=== PATIENT | female | born 1965 | race Caucasian/White ===

== ENCOUNTER 2016-06-08 08:18 | Emergency (ER) | payer SELFPAY ==
--- NOTE | 2016-06-08 08:52 | ERRECORD ---
[facility] EMERGENCY RECORD HPI EYE COMPLAINT (08:41 ABUS) CHIEF COMPLAINT: Patient presents for evaluation of redness, to the left eye. HISTORIAN: History provided by patient, 50 yr old F with left eye redness and mild swelling for 1 week and not improving with warm compresses and allergy medication. Denies any changes in vision, eye ball pain, N/V or NEIL. MECHANISM OF INJURY: Unknown. LOCATION: Symptoms are localized, most severe in the left eye. SEVERITY: Currently symptoms are mild. TIME COURSE: Gradual onset of symptoms, 7, days priror to arrival, Symptoms are worsening, are constant. ASSOCIATED WITH: No associated symptoms. RELIEVED BY: Patient's condition relieved by nothing. ROS (08:43 ABUS) CONSTITUTIONAL: Negative constitutional review of systems, Historian denies chills, denies fever. EYES: Historian reports eye redness, reports tearing. CARDIOVASCULAR: Negative cardiovascular review of systems, Historian denies chest pain, denies palpitations. RESPIRATORY: Negative respiratory review of systems, Historian denies cough, denies shortness of breath. GI: Negative gastrointestinal review of systems, Historian denies abdominal pain, denies constipation, denies diarrhea, denies nausea, denies vomiting. GENITOURINARY FEMALE: Negative genitourinary review of systems, Historian denies dysuria, denies frequency. SKIN: Negative skin review of systems, Historian denies rash, denies skin changes. NEUROLOGIC: Negative neurologic review of systems, Historian denies headache. HEMO/LYMPHATIC: Normal hematologic/lymphatic system review, Historian denies abnormal blood clotting. PAST MEDICAL HISTORY (08:29 SFRE) MEDICAL HISTORY: Past medical history includes cardiac history, Past medical history includes history of hypertension, which has been treated, Notes: VERIFIED 12-11-14, Notes: VERIFIED 04-23-14, Flu vaccine not up to date, Pneumococcal vaccine not up to date, No past medical history of cardiac disease, Past medical history includes history of hypertension, which has been treated, HTCZ, Notes: REVIEWED ON 05/05/16. FEMALE SURGICAL HISTORY: VERIFIED 12-11-14, Surgical history of cholecystectomy, laparoscopic, Date of surgery 07/2014, VERIFIED 04-23-14, Surgical history of section, Notes: X 3, VERIFIED 01-06-13, LEFT ANKLE SURGERY MAY 2010 (PLATES AND SCREWS), Surgical history of section, Notes: X 3 PER PT. REVIEWED ON &a-1R&a+25V*p+0X*j8637X*c202B*c15G*c2P*p-0X&a-25V&a+1R Name: Melinda Short : 1965 F50 MedRec: [id number] AcctNum: [id number] Prepared: Izzy Jun 08, 2016 08:56 by Interface Page 1 of 3 pMD [facility] EMERGENCY RECORD 05/05/16. PSYCHIATRIC HISTORY: Notes: DENIES. REVIEWED ON 05/05/16. SOCIAL HISTORY: Patient denies alcohol use, Patient denies drug use, Patient has no smoking history, Social History includes VERIFIED 04-23-14, Social History includes VERIFIED 01-06-13, Patient has no smoking history, Patient drinks socially, Patient denies drug use. VERIFIED 05/02/15. KNOWN ALLERGIES No Known Allergies CURRENT MEDICATIONS (08:28 SFRE) hydrochlorothiazide: TABLET : Strength - 25 mg : ORAL Patient Dose: 1 tab(s) Oral once a day (in the morning).1 REFILL. citalopram: TABLET : Strength - 10 mg : ORAL Patient Dose: 10 mg Oral once a day (in the morning). VITAL SIGNS (08:26 SFRE) VITAL SIGNS: BP: 121/77, Pulse: 66, Resp: 18, Temp: 97.5 (Tympanic), Pain: 10 (not applicable), O2 sat: 99 on Room Air, Time: 06/08/2016 08:26. PHYSICAL EXAM (08:43 ABUS) CONSTITUTIONAL: Vital signs reviewed, Patient afebrile, Pulse normal, Blood pressure normal, Respiratory rate normal, Patient appears non toxic, Patient appears pain free, Patient alert and oriented to person, place and time. EYES: Eye exam included findings of, left eyelid red, left eyelid edematous, left eyelid with chalazion, right eyelid normal, Pupils equally round and reactive to light, Extraocular muscles intact, Conjunctiva normal, Sclera normal, Periorbital edema present, to the left eye. NECK: Neck exam normal, Neck exam included findings of normal range of motion, Trachea midline, no meningeal signs, no cervical adenopathy, no tenderness. RESPIRATORY CHEST: Respiratory and chest exam normal, Respiratory exam included findings of no respiratory distress, Chest exam included findings of chest movement symmetrical, Chest expansion equal. ABDOMEN FEMALE: Abdominal exam included findings of abdomen nontender, Bowel sounds normal, no distension, no mass, no pulsatile masses, no peritoneal signs, no rigidity, no guarding, no rebound, Rovsing's sign absent. BACK: Back exam normal, Back exam included findings of normal inspection, range of motion normal, no tenderness. &a-1R&a+25V*p+0X*[id number]*c202B*c15G*c2P*p-0X&a-25V&a+1R Name: Melinda Short : 1965 F50 MedRec: [id number] AcctNum: [id number] Prepared: Izzy Jun 08, 2016 08:56 by Interface Page 2 of 3 pMD [facility] EMERGENCY RECORD NEURO: Neuro exam normal, Neuro exam findings include patient oriented to person, place and time, Speech normal, Gait normal. SKIN: Skin exam normal, Skin exam included findings of skin warm, dry, and normal in color, no rash. DOCTOR NOTES (08:44 ABUS) TEXT: 50 yr old F with left eye redness and mild swelling for 1 week and not improving with warm compresses and allergy medication. Denies any changes in vision, eye ball pain, N/V or NEIL. EXAM: Left perirobital swelling, scleral injection, lower eye lid swelling. Normal EOMI without pain. DDX: Chalazion, Hordoleum, allergic conjunctivitis, peribortibal cellulitis PLAN: Return precautions and abx, warm comrpress DISPO: DC home Level of Complexity: low. PROBLEM LIST No recorded problems DIAGNOSIS (08:40 ABUS) FINAL: PRIMARY: HORDEOLUM EXTERNUM UNS EYE EYELID. PRESCRIPTION (08:39 ABUS) Keflex: CAPSULE : 500 mg : ORAL : Quantity: 1 Unit: cap(s) Route: ORAL Schedule: 4 times a day Dispense: 28 Unit: cap(s) May substitute. Refills: No Refills . NOTES: No Refills. erythromycin ophthalmic: OINTMENT (GRAM) : 5 mg/gram (0.5 %) : OPHTHALMIC : Quantity: * Unit: Route: OPHTHALMIC Schedule: Dispense: * May substitute. Refills: No Refills . NOTES: Instill 1 cm of ointment to left eye 3 times per day. Dispense 3.5 g tube. No refills No Refills. DISPOSITION PATIENT: Disposition Type: Discharge, Disposition: *Discharge Home, Condition: Good. (08:40 ABUS) Patient left the department. (08:49 BLACK) Lacey: AB=MD Pal, Wade SFRE=Serge RN, Maegan &a-1R&a+25V*p+0X*[id number]*c202B*c15G*c2P*p-0X&a-25V&a+1R Name: Melinda Short : 1965 F50 MedRec: [id number] AcctNum: [id number] Prepared: Izzy Jun 08, 2016 08:56 by Interface Page 3 of 3 pMD MTDD
--- NOTE | 2016-06-08 08:58 | PICIS ---
[facility] EMERGENCY RECORD TRIAGE (TueJun 08, 2016 08:27 SFRE) TRIAGE NOTES: PAIN TO LEFT EYE, REDNESS AND SWELLING. (TueJun 08, 2016 08:27 SFRE) PATIENT: NAME: Melinda Short, AGE: 50, GENDER: female, : Heide 1965, TIME OF GREET: TueJun 08, 2016 08:19, PREFERRED LANGUAGE: Armenian, ETHNICITY: Not or , FALL RISK: NO, ECODE BILLING MAP: [facility], SSN: [id number], Zip Code: [address], KG WEIGHT: 79.38, PHONE: , , , PERSON ID: [id number], PCP: MD Sanchez Grover. (TueJun 08, 2016 08:27 SFRE) COMPLAINT: LT EYE-BUMP. (TueJun 08, 2016 08:27 SFRE) ADMISSION: URGENCY: 5 Fast Track, ADMISSION SOURCE: Home, TRANSPORT: Walk-in, BED: ED -03. (TueJun 08, 2016 08:27 SFRE) IMMUNIZATIONS: Flu vaccine not up to date. (08:29 SFRE) TRIAGE SCREENING: Patient denies suicidal ideation, Patient denies presence of domestic violence. (08:29 SFRE) PROVIDERS: TRIAGE NURSE: Maegan Valentine RN. (TueJun 08, 2016 08:27 SFRE) VITAL SIGNS: BP 121/77, Pulse 66, Resp 18, Temp 97.5, (Tympanic), Pain 10, (not applicable), O2 Sat 99, on Room Air, Time 06/08/2016 08:26. (08:26 SFRE) PREVIOUS VISIT ALLERGIES: No Known Allergies. (TueJun 08, 2016 08:27 SFRE) No Known Allergies. (08:29 SFRE) KNOWN ALLERGIES No Known Allergies CURRENT MEDICATIONS (08:28 SFRE) hydrochlorothiazide: TABLET : Strength - 25 mg : ORAL Patient Dose: 1 tab(s) Oral once a day (in the morning).1 REFILL. citalopram: TABLET : Strength - 10 mg : ORAL Patient Dose: 10 mg Oral once a day (in the morning). VITAL SIGNS (08:26 SFRE) VITAL SIGNS: BP: 121/77, Pulse: 66, Resp: 18, Temp: 97.5 (Tympanic), Pain: 10 (not applicable), O2 sat: 99 on Room Air, Time: 06/08/2016 08:26. NURSING ASSESSMENT: EYE (08:30 SFRE) CONSTITUTIONAL: Patient arrives ambulatory, Gait steady, History obtained from patient, Patient appears, in distress due to pain, Patient cooperative, Patient alert, Oriented to person, place and time, Skin warm, Skin dry, Skin normal in color, Mucous membranes pink, Mucous membranes moist, Patient is well-groomed, Patient complains of BUMP ON LEFT EYE. PAIN: miserable pain, Right eye, Onset of pain &a-1R&a+25V*p+0X*f5126V*c202B*c15G*c2P*p-0X&a-25V&a+1R Name: Melinda Short : 1965 F50 MedRec: [id number] AcctNum: [id number] Prepared: Izzy Jun 08, 2016 08:56 by Interface Page 1 of 5 pMD [facility] EMERGENCY RECORD 06/02/2016, constant, on a scale 0-10 patient rates pain as 10, PATIENT STATES EYE DOESN'T HURT BUT THAT SHE IS MISERABLE, Pain exacerbated by nothing. EYES: Eye lid, with edema on the right, Conjunctiva, injected on the right, edematous on the right, Sclera, injected on the right, Iris normal, Pupils equally round and reactive to light, Left pupil 3 mm in size, Right pupil 3 mm in size, Associated with drainage, yellow in color, to the right eye, Associated with tearing, to the right eye. SAFETY: Side rails up, Cart/Stretcher in lowest position, Call light within reach, Hospital ID band on. NURSING PROCEDURE: DISCHARGE NOTE (08:46 SFRE) DISCHARGE: Patient discharged to home, ambulating without assistance, driving self, unaccompanied, Summary of Care printed/ provided, Patient requested and was provided an electronic copy of Discharge Instructions, Discharge instructions given to patient, Simple or moderate discharge teaching performed, by ERON HAWKINS, F/U WITH PCP. RX DIRECTED. RETURN TO ED NEEDED FOR NEW/CONCERNING OR WORSENING SYMPTOMS., Prescriptions given and instructions on side effects given, Name of prescription(s) given: KEFLEX, ERYTHROMYCIN OPHTHALMIC, Above person(s) verbalized understanding of discharge instructions and follow-up care. HPI EYE COMPLAINT (08:41 ABUS) CHIEF COMPLAINT: Patient presents for evaluation of redness, to the left eye. HISTORIAN: History provided by patient, 50 yr old F with left eye redness and mild swelling for 1 week and not improving with warm compresses and allergy medication. Denies any changes in vision, eye ball pain, N/V or NEIL. MECHANISM OF INJURY: Unknown. LOCATION: Symptoms are localized, most severe in the left eye. SEVERITY: Currently symptoms are mild. TIME COURSE: Gradual onset of symptoms, 7, days priror to arrival, Symptoms are worsening, are constant. ASSOCIATED WITH: No associated symptoms. RELIEVED BY: Patient's condition relieved by nothing. ROS (08:43 ABUS) CONSTITUTIONAL: Negative constitutional review of systems, Historian denies chills, denies fever. EYES: Historian reports eye redness, reports tearing. CARDIOVASCULAR: Negative cardiovascular review of systems, Historian denies chest pain, denies palpitations. RESPIRATORY: Negative respiratory review of systems, Historian &a-1R&a+25V*p+0X*f5037K*c202B*c15G*c2P*p-0X&a-25V&a+1R Name: Melinda Short : 1965 F50 MedRec: [id number] AcctNum: [id number] Prepared: Izzy Jun 08, 2016 08:56 by Interface Page 2 of 5 pMD [facility] EMERGENCY RECORD denies cough, denies shortness of breath. GI: Negative gastrointestinal review of systems, Historian denies abdominal pain, denies constipation, denies diarrhea, denies nausea, denies vomiting. GENITOURINARY FEMALE: Negative genitourinary review of systems, Historian denies dysuria, denies frequency. SKIN: Negative skin review of systems, Historian denies rash, denies skin changes. NEUROLOGIC: Negative neurologic review of systems, Historian denies headache. HEMO/LYMPHATIC: Normal hematologic/lymphatic system review, Historian denies abnormal blood clotting. PAST MEDICAL HISTORY (08:29 SFRE) MEDICAL HISTORY: Past medical history includes cardiac history, Past medical history includes history of hypertension, which has been treated, Notes: VERIFIED 12-11-14, Notes: VERIFIED 04-23-14, Flu vaccine not up to date, Pneumococcal vaccine not up to date, No past medical history of cardiac disease, Past medical history includes history of hypertension, which has been treated, HTCZ, Notes: REVIEWED ON 05/05/16. FEMALE SURGICAL HISTORY: VERIFIED 12-11-14, Surgical history of cholecystectomy, laparoscopic, Date of surgery 07/2014, VERIFIED 04-23-14, Surgical history of section, Notes: X 3, VERIFIED 01-06-13, LEFT ANKLE SURGERY MAY 2010 (PLATES AND SCREWS), Surgical history of section, Notes: X 3 PER PT. REVIEWED ON 05/05/16. PSYCHIATRIC HISTORY: Notes: DENIES. REVIEWED ON 05/05/16. SOCIAL HISTORY: Patient denies alcohol use, Patient denies drug use, Patient has no smoking history, Social History includes VERIFIED 04-23-14, Social History includes VERIFIED 01-06-13, Patient has no smoking history, Patient drinks socially, Patient denies drug use. VERIFIED 05/02/15. PHYSICAL EXAM (08:43 ABUS) CONSTITUTIONAL: Vital signs reviewed, Patient afebrile, Pulse normal, Blood pressure normal, Respiratory rate normal, Patient appears non toxic, Patient appears pain free, Patient alert and oriented to person, place and time. EYES: Eye exam included findings of, left eyelid red, left eyelid edematous, left eyelid with chalazion, right eyelid normal, Pupils equally round and reactive to light, Extraocular muscles intact, Conjunctiva normal, Sclera normal, Periorbital edema present, to the left eye. NECK: Neck exam normal, Neck exam included findings of normal range of motion, Trachea midline, no meningeal signs, no cervical adenopathy, no tenderness. RESPIRATORY CHEST: Respiratory and chest exam normal, Respiratory &a-1R&a+25V*p+0X*c5240N*c202B*c15G*c2P*p-0X&a-25V&a+1R Name: Melinda Short : 1965 F50 MedRec: [id number] AcctNum: [id number] Prepared: TueJun 08, 2016 08:56 by Interface Page 3 of 5 pMD [facility] EMERGENCY RECORD exam included findings of no respiratory distress, Chest exam included findings of chest movement symmetrical, Chest expansion equal. ABDOMEN FEMALE: Abdominal exam included findings of abdomen nontender, Bowel sounds normal, no distension, no mass, no pulsatile masses, no peritoneal signs, no rigidity, no guarding, no rebound, Rovsing's sign absent. BACK: Back exam normal, Back exam included findings of normal inspection, range of motion normal, no tenderness. NEURO: Neuro exam normal, Neuro exam findings include patient oriented to person, place and time, Speech normal, Gait normal. SKIN: Skin exam normal, Skin exam included findings of skin warm, dry, and normal in color, no rash. EVENTS TRANSFER: Triage to Emergency Main ED -03. (08:27 SFRE) Removed from Emergency Main ED -03. (08:49 SFRE) DOCTOR NOTES (08:44 ABUS) TEXT: 50 yr old F with left eye redness and mild swelling for 1 week and not improving with warm compresses and allergy medication. Denies any changes in vision, eye ball pain, N/V or NEIL. EXAM: Left perirobital swelling, scleral injection, lower eye lid swelling. Normal EOMI without pain. DDX: Chalazion, Hordoleum, allergic conjunctivitis, peribortibal cellulitis PLAN: Return precautions and abx, warm comrpress DISPO: DC home Level of Complexity: low. PROBLEM LIST No recorded problems DIAGNOSIS (08:40 ABUS) FINAL: PRIMARY: HORDEOLUM EXTERNUM UNS EYE EYELID. DISPOSITION PATIENT: Disposition Type: Discharge, Disposition: *Discharge Home, Condition: Good. (08:40 ABUS) Patient left the department. (08:49 SFRE) INSTRUCTION (08:41 ABUS) DISCHARGE: HORDEOLUM, CHALAZION. FOLLOWUP: MD Laura, James, [facility], [address] [place] [address], , Follow up with Primary Care Physician in 1-2 days. SPECIAL: Follow-up with your PCP or the case supervisor if your symptoms worsen, develop redness, swelling, fever, or symptoms that concern you. &a-1R&a+25V*p+0X*c0023Q*c202B*c15G*c2P*p-0X&a-25V&a+1R Name: Melinda Short : 1965 F50 MedRec: [id number] AcctNum: [id number] Prepared: TueJun 08, 2016 08:56 by Interface Page 4 of 5 pMD [facility] EMERGENCY RECORD PRESCRIPTION (08:39 ABUS) Keflex: CAPSULE : 500 mg : ORAL : Quantity: 1 Unit: cap(s) Route: ORAL Schedule: 4 times a day Dispense: 28 Unit: cap(s) May substitute. Refills: No Refills . NOTES: No Refills. erythromycin ophthalmic: OINTMENT (GRAM) : 5 mg/gram (0.5 %) : OPHTHALMIC : Quantity: * Unit: Route: OPHTHALMIC Schedule: Dispense: * May substitute. Refills: No Refills . NOTES: Instill 1 cm of ointment to left eye 3 times per day. Dispense 3.5 g tube. No refills No Refills. IMAGING (08:48 SFRE) *DISCHARGE INSTRUCTIONS RECEIPT: Image captured from scanner. *SUPPLY CHARGE SHEET: Image captured from scanner. ADMIN DIGITAL SIGNATURE: MD Aguillon Anthony. (08:46 ABUS) ERON Valentine Stacey. (08:49 SFRE) Lacey: ABUS=MD Aguillon Anthony SFRE=ERON Valentine Stacey &a-1R&a+25V*p+0X*u9165S*c202B*c15G*c2P*p-0X&a-25V&a+1R Name: Melinda Short : 1965 F50 MedRec: [id number] AcctNum: [id number] Prepared: TueJun 08, 2016 08:56 by Interface Page 5 of 5 pMD MTDD
== END 2016-06-08 08:46 | disposition home or self-care (01) ==
LOC: MADERS 08:18
DX: H00.015 Hordeolum externum left lower eyelid (principal); I10 Essential (primary) hypertension; Z79.899 Other long term (current) drug therapy
CPT/HCPCS: 99282

== ENCOUNTER 2017-08-12 12:20 | Emergency (ER) | payer SELFPAY ==
--- NOTE | 2017-08-12 13:40 | RAD ---
LEFT ANKLE THREE VIEWS: History: Pain. Comparison: 2010 FINDINGS: Old distal left fibular fracture with plate and screw fixation as well as interfragmentary screw in g ood position. There are two proximal cannulated screws through the medial malleolus. No acute displac ed fracture or malalignment. IMPRESSION: No acute abnormality. POS: [facility]
== END 2017-08-12 13:45 | disposition home or self-care (01) ==
LOC: MADERS 12:20
DX: S93.412A Sprain of calcaneofibular ligament of left ankle, initial encounter (principal); G25.81 Restless legs syndrome; I10 Essential (primary) hypertension; W19.XXXA Unspecified fall, initial encounter

== ENCOUNTER 2017-12-02 21:59 | Emergency (ER) | payer SELFPAY ==
[2017-12-03] MEDS ORDERED: Morphine 10 MG/ML VIAL ONE
[2017-12-03] MEDS ORDERED: diphenhydrAMINE 25 MG CAP ONE
== END 2017-12-03 00:55 | disposition home or self-care (01) ==
LOC: MADERS 21:59
DX: G62.9 Polyneuropathy, unspecified (principal); I10 Essential (primary) hypertension; Z79.899 Other long term (current) drug therapy
CPT/HCPCS: 96372

== ENCOUNTER 2018-06-11 12:00 | Emergency (ER) | payer SELFPAY ==
[~2018-06-11 12:00] MED LIST: Iopamidol 370 76% 100 ML VIAL ONE
[2018-06-11] MEDS ORDERED: Sodium Chloride 0.9% 1,000 ML ONE ×2 (12:18→13:18)
[2018-06-11] MEDS ORDERED: Pantoprazole 40 MG VIAL ONE (12:18)
[2018-06-11] MEDS ORDERED: Prochlorperazine 10 MG/2 ML VIAL ONE (12:18)
[2018-06-11 12:50] LABS: #Basophils 0.1 thou/uL (0.0-0.2); #Eosinphils 0.2 thou/uL (0.0-0.7); #Lymphocytes 1.7 thou/uL (1.20-3.40); #Monocytes 0.4 thou/uL (0.11-0.59); #Neutrophils 6.9 thou/uL (1.40-6.50); %Basophils 1.1 % (0.0-1.0); %Eosinophils 1.8 % (0.0-10.0); %Lymphocytes 18.5 % (21.0-51.0); %Monocytes 3.9 % (0.0-10.0); %Neutrophils 74.8 % (42.0-75.0); Hemoglobin 14.9 g/dL (12.0-16.0); Mean Corpuscular HGB CONC 33.6 g/dL (32.0-36.0); Mean Corpuscular Volume 95.4 fL (78.0-98.0); Mean Platelet Volume 9.7 fL (7.4-10.4); Platelet Count 192 thou/uL (130-400); RBC Distribution Width 11.1 % (11.5-14.5); Red Blood Cell (RBC) Count 4.65 mill/uL (4.20-5.40); White Blood Cell (WBC) Count 9.2 thou/uL (4.8-10.8)
[2018-06-11 12:55] LABS: ALT (SGPT) 24 U/L (8-55); AST (SGOT) 30 U/L (5-34); Albumin 4.7 g/dL (3.5-5.0); Alkaline Phosphatase 102 U/L (40-150); Anion Gap 16 mmol/L (10-20); BUN (Urea Nitrogen) 12 mg/dL (9.8-20.1); Bilirubin, Total 0.7 mg/dL (0.2-1.2); Calc. Creatinine Clearance 0 mL/min (70-130); Calcium 10.1 mg/dL (7.8-10.44); Carbon Dioxide 25 mmol/L (22-29); Chloride 106 mmol/L (98-107); Estimated GFR-MDRD 70; Globulin 3.3 g/dL (2.4-3.5); Glucose 155 mg/dL (70-105); Lipase 23 U/L (8-78); Potassium 3.6 mmol/L (3.5-5.1); Sodium 143 mmol/L (136-145)
--- NOTE | 2018-06-11 13:05 | RAD ---
RADIOGRAPH CHEST 1 VIEW RADIOGRAPH ABDOMEN 2 VIEWS: HISTORY: A 52-year-old female with abdominal pain. FINDINGS: There are no air space densities or pulmonary edema. The lateral costophrenic angles are sharp. There is no cardiomegaly. There is no evidence of pneumothorax or pneumoperitoneum. There is no evidence of dilated small bowel loops, differential air/fluid levels, or organomegaly. IMPRESSION: 1) No acute cardiopulmonary findings. 2) No evidence of bowel obstruction. zeeshan [] POS: PRO
[2018-06-11] MEDS ORDERED: Morphine 10 MG/ML VIAL ONE (13:57)
[2018-06-11 15:08] LABS: Bilirubin Negative (Negative); Blood, Urine Negative (Negative); Clarity Clear (Clear); Glucose, Urine (Dipstick) 100 mg/dL (Negative); Leukocyte Negative (Negative); Nitrite Negative (Negative); Protein, Urine (Dipstick) Negative (Neg-Trace); Urobilinogen 0.2 mg/dL (0.2-1.0); pH, Urine 7.5 (5.0-9.0)
[2018-06-11] MEDS ORDERED: Dexamethasone 10 MG/ML VIAL ONE (15:23)
--- NOTE | 2018-06-11 15:26 | CT ---
CT ABDOMEN WITH CONTRAST CT PELVIS WITH CONTRAST: DATE: 06/11/2018. TIME: 2:31 p.m. HISTORY: A 52-year-old female with abdominal pain, nausea, and vomiting. COMPARISON: 07/19/2014. TECHNIQUE: IV injection of iodinated contrast media: administered. Oral contrast media: not administered. FINDINGS: Whereas previously there were signs of colitis contiguously involving left hemicolon from hepatic fle xure through descending colon and entire rectosigmoid (mural thickening and mural edema, with obliter ation of lumen), now there is a similar such finding, but only involving the distal half sigmoid colo n and rectum, with an abrupt transition point at the beginning of this at midline at the mid sigmoid colon (the transition zone is best demonstrated on axial image 58 of 92, series 2; coronal image 43 of 119, series 300). There is edema in the mesentery directly superior to the affected portion of th e sigmoid colon. There is no abscess. There is a new finding of distention of the urinary bladder, which has normal, thin kruse. This dist ention of the bladder displaces the uterine body and fundus superiorly. In the lower uterine segment and cervix, there is fluid within the endocervical canal/lower endometrial cavity, a new finding sin ce the previous study. There is a small amount of free fluid in the cul-de-sac, greater than on the previous CT. Again, the left kidney is noted to be much smaller than the right. It has similar, lon ogeneous enhancement pattern to that of the normal right kidney. There is mild left hydronephrosis, but no dilation of the left ureter. This hydronephrosis is slightly greater than on the previous CT. Perhaps it is partly due to the distention of the urinary bladder. Cholecystectomy clips in the ga llbladder fossa. No major pathology identified involving the abdominal aorta, adrenals, pancreas, li shyanne, adrenals, or spleen. No small bowel dilation. No pneumoperitoneum. No pleural effusion. IMPRESSION: 1. Colitis continuously involving mid and distal sigmoid colon and rectum. One possibility is ulcer ative colitis. Clinical correlation is recommended. 2. Atrophic but functioning left kidney. 3. Mild left hydronephrosis. 4. Distended urinary bladder. 5. Fluid in the endometrial cavity of the lower uterine segment/endocervical canal. 6. A small amount of free fluid in the cul-de-sac. 7. Status post cholecystectomy. OTF Velázquez POS: PRO
== END 2018-06-11 17:24 | disposition home or self-care (01) ==
LOC: MADERS 12:00
DX: K52.9 Noninfective gastroenteritis and colitis, unspecified (principal); I10 Essential (primary) hypertension; F41.9 Anxiety disorder, unspecified; Z79.899 Other long term (current) drug therapy
CPT/HCPCS: 74022; 74177; 80053; 81003; 83605; 83690; 85025; 96361; 96372; 96374; 96375; C9113; J0500; J0780; J1100; J2270; J7050; Q9967

== ENCOUNTER 2018-07-11 09:38 | Emergency (ER) | payer SELFPAY ==
[2018-07-11] MEDS ORDERED: Promethazine HCl 25 MG/ML VIAL ONE (11:06)
== END 2018-07-11 12:13 | disposition home or self-care (01) ==
LOC: MADERS 09:38
DX: R11.2 Nausea with vomiting, unspecified (principal); I10 Essential (primary) hypertension; F41.9 Anxiety disorder, unspecified; Z79.899 Other long term (current) drug therapy
CPT/HCPCS: 87804; 96372; J2550

== ENCOUNTER 2018-07-13 14:30 | Emergency (ER) | payer SELFPAY ==
[~2018-07-13 14:30] MED LIST changes: -Iopamidol 370 76% 100 ML VIAL ONE; +Iopamidol 370 76% 75 ML VIAL FS ONE; +Sodium Chloride 0.9% 1,000 ML BAG ONE
[2018-07-13] MEDS ORDERED: Pantoprazole 40 MG VIAL ONE (15:55)
[2018-07-13] MEDS ORDERED: Sodium Chloride 0.9% 1,000 ML ONE ×2 (15:55→20:22)
[2018-07-13] MEDS ORDERED: Ondansetron PF 4 MG/2 ML Vial ONE ×2 (15:55→17:11)
[2018-07-13 16:27] LABS: Hemoglobin 16.3 g/dL (12.0-16.0); Mean Corpuscular HGB CONC 32.7 g/dL (32.0-36.0); Mean Corpuscular Hemoglobin 31.1 pg (27.0-31.0); Mean Corpuscular Volume 95.2 fL (78.0-98.0); Platelet Count 254 thou/uL (130-400); RBC Distribution Width 11.6 % (11.5-14.5); Red Blood Cell (RBC) Count 5.25 mill/uL (4.20-5.40); White Blood Cell (WBC) Count 12.7 thou/uL (4.8-10.8)
[2018-07-13 16:29] LABS: ALT (SGPT) 49 U/L (8-55); AST (SGOT) 44 U/L (5-34); Albumin 4.8 g/dL (3.5-5.0); Alkaline Phosphatase 96 U/L (40-150); Anion Gap 17 mmol/L (10-20); BUN (Urea Nitrogen) 19 mg/dL (9.8-20.1); Bilirubin, Total 1.1 mg/dL (0.2-1.2); CK (CPK) 59 U/L (29-168); Calc. Creatinine Clearance 0 mL/min (70-130); Calcium 9.7 mg/dL (7.8-10.44); Carbon Dioxide 27 mmol/L (22-29); Chloride 96 mmol/L (98-107); Estimated GFR-MDRD 67; Globulin 3.6 g/dL (2.4-3.5); Glucose 122 mg/dL (70-105); Lipase 54 U/L (8-78); Manual Diff?? YES; Potassium 3.4 mmol/L (3.5-5.1); Protein, Total 8.4 g/dL (6.0-8.3); Sodium 137 mmol/L (136-145)
[2018-07-13 16:30] LABS: Lymphocytes 4 % (21-51); MDiff Complete? YES; Monocytes 5 % (0-10); Neutrophil 76 % (42-75); Platelet Morphology Comment Appears Adequate; Reactive Lymphocytes 15 % (0-10)
[2018-07-13 17:30] LABS: Bilirubin Small (Negative); Blood, Urine Small (Negative); Glucose, Urine (Dipstick) Negative (Negative); Leukocyte Negative (Negative); Nitrite Negative (Negative); Protein, Urine (Dipstick) 100 mg/dL (Neg-Trace); Specific Gravity, Urine 1.015 (1.005-1.030); pH, Urine 6.5 (5.0-9.0)
[2018-07-13 17:32] LABS: Clarity Hazy (Clear)
[2018-07-13 17:37] LABS: Bacteria/HPF Rare-Few HPF (None Seen); WBC/HPF 0-3 HPF (0-3)
[2018-07-13] MEDS ORDERED: Promethazine HCl 25 MG/ML VIAL ONE (18:17)
--- NOTE | 2018-07-13 19:07 | CT ---
CT ABDOMEN AND PELVIS WITH CONTRAST 07/13/18 Multiple axial tomograms obtained through the abdomen and pelvis with IV enhancement. INDICATIONS: Abdominal pain. Leukocytosis. Comparison made to recent CT abdomen 06/11/18 which showed colitis involving the sigmoid colon. FINDINGS: Lung bases clear. Liver, spleen, pancreas remain unremarkable with granulomatous calcifications again noted in the sple en. Atrophic left kidney and mild left hydronephrosis is unchanged and was described on the prior study. The urinary bladder is unremarkable. Small bowel loops are normal caliber. Colon is mostly nondistended. There continues to be some changes of mural thickening in the lower eleazar cending colon and sigmoid although the findings of colitis noted previously have significantly improv ed. There are scattered diverticula and the previous findings may have represented diverticulitis. The uterus and adnexa unremarkable. No other interval change. IMPRESSION: Minimal mural thickening in the lower left colon possibly representing some mild residual colitis alt alondra this is difficult to evaluate due to nondistention of the colon. There has been significant imp rovement in the colitis involving the sigmoid colon when compared to 06/11/18. Other findings remain s table. POS: PRO
[2018-07-13] MEDS ORDERED: Ciprofloxacin Lactate/D5W 400 mg/200 ml Premix ONE (20:22)
[2018-07-13] MEDS ORDERED: Ketorolac Tromethamine 30 MG/ML VIAL ONE (20:22)
[2018-07-13] MEDS ORDERED: metroNIDAZOLE 500 MG/100 ML BAG ONE (20:22)
[2018-07-13] MEDS ORDERED: diphenhydrAMINE 50 MG/ML VIAL ONE (20:22)
== END 2018-07-13 21:02 | disposition short-term general hospital (02) ==
LOC: MADERS 14:30
DX: K52.9 Noninfective gastroenteritis and colitis, unspecified (principal); E86.0 Dehydration; R11.2 Nausea with vomiting, unspecified; I10 Essential (primary) hypertension; F41.9 Anxiety disorder, unspecified; Z79.899 Other long term (current) drug therapy
CPT/HCPCS: 74177; 80053; 81003; 81015; 82550; 83690; 85025; 93005; 96361; 96365; 96375; 96376; C9113; J0744; J1200; J1885; J2405; J2550; J7050

== ENCOUNTER 2018-07-14 12:19 | Emergency (ER) | payer SELFPAY ==
[2018-07-14] MEDS ORDERED: Promethazine HCl 25 MG/ML VIAL ONE (13:31)
== END 2018-07-14 13:55 | disposition home or self-care (01) ==
LOC: MADERS 12:19
DX: R11.2 Nausea with vomiting, unspecified (principal); Z79.899 Other long term (current) drug therapy
CPT/HCPCS: 96372; J2550

== ENCOUNTER 2018-07-22 05:25 | Emergency (ER) | payer SELFPAY | END 2018-07-22 06:31 | disposition home or self-care (01) | LOC: MADERS 05:25 | DX: G43.A1 Cyclical vomiting, in migraine, intractable (principal); I10 Essential (primary) hypertension | CPT/HCPCS: 99284 ==

== ENCOUNTER 2018-11-13 00:09 | Emergency (ER) | payer SELFPAY ==
[2018-11-13] MEDS ORDERED: HYDROcodone/Acetaminophen 10/325 mg Tablet ONE (00:22)
[2018-11-13] MEDS ORDERED: Acetaminophen 325 MG TAB ONE (00:23)
[2018-11-13] MEDS ORDERED: Cyclobenzaprine 10 MG TAB ONE ×2 (00:23→00:26)
[2018-11-13] MEDS ORDERED: Gabapentin 100 MG CAP ONE (00:24)
== END 2018-11-13 00:42 | disposition home or self-care (01) ==
LOC: MADERS 00:09
DX: G25.81 Restless legs syndrome (principal); M25.572 Pain in left ankle and joints of left foot; I10 Essential (primary) hypertension; I45.81 Long QT syndrome; Z79.899 Other long term (current) drug therapy
CPT/HCPCS: 99283

== ENCOUNTER 2018-11-18 01:16 | Emergency (ER) | payer SELFPAY ==
[2018-11-18] MEDS ORDERED: diphenhydrAMINE 25 MG CAP ONE (01:42)
[2018-11-18] MEDS ORDERED: predniSONE 20 MG TAB ONE (01:42)
== END 2018-11-18 01:47 | disposition home or self-care (01) ==
LOC: MADERS 01:16
DX: L25.9 Unspecified contact dermatitis, unspecified cause (principal); F32.9 Major depressive disorder, single episode, unspecified
CPT/HCPCS: 99282; J7512; Q0163

== ENCOUNTER 2018-11-19 01:22 | Emergency (ER) | payer SELFPAY ==
[2018-11-19 02:52] LABS: #Basophils 0.1 thou/uL (0.0-0.2); #Eosinphils 0.1 thou/uL (0.0-0.7); #Lymphocytes 2.6 thou/uL (1.20-3.40); #Neutrophils 9.3 thou/uL (1.40-6.50); %Basophils 0.7 % (0.0-1.0); %Eosinophils 0.8 % (0.0-10.0); %Lymphocytes 19.7 % (21.0-51.0); %Monocytes 7.3 % (0.0-10.0); %Neutrophils 71.4 % (42.0-75.0); Hemoglobin 13.1 g/dL (12.0-16.0); Mean Corpuscular HGB CONC 33.4 g/dL (32.0-36.0); Mean Corpuscular Hemoglobin 30.7 pg (27.0-31.0); Mean Platelet Volume 8.2 fL (7.4-10.4); Platelet Count 176 thou/uL (130-400); RBC Distribution Width 10.7 % (11.5-14.5); Red Blood Cell (RBC) Count 4.25 mill/uL (4.20-5.40)
[2018-11-19 03:13] LABS: Anion Gap 16 mmol/L (10-20); BUN (Urea Nitrogen) 17 mg/dL (9.8-20.1); CK (CPK) 46 U/L (29-168); Calc. Creatinine Clearance 0 mL/min (70-130); Calcium 9.4 mg/dL (7.8-10.44); Carbon Dioxide 26 mmol/L (22-29); Chloride 105 mmol/L (98-107); Estimated GFR-MDRD 58; Glucose 173 mg/dL (70-105); Sodium 144 mmol/L (136-145)
[2018-11-19 03:21] LABS: Potassium 2.9 mmol/L (3.5-5.1)
== END 2018-11-19 02:40 | disposition left against medical advice (07) ==
LOC: MADERS 01:22
DX: L55.9 Sunburn, unspecified (principal); R11.10 Vomiting, unspecified; I10 Essential (primary) hypertension; F32.9 Major depressive disorder, single episode, unspecified; Z79.899 Other long term (current) drug therapy
CPT/HCPCS: 36415; 80048; 82550; 85025; 99284

== ENCOUNTER 2018-11-21 19:17 | Emergency (ER) | payer SELFPAY ==
[2018-11-21 19:53] LABS: #Basophils 0.1 thou/uL (0.0-0.2); #Lymphocytes 1.7 thou/uL (1.20-3.40); #Monocytes 0.4 thou/uL (0.11-0.59); #Neutrophils 9.6 thou/uL (1.40-6.50); %Basophils 0.8 % (0.0-1.0); %Eosinophils 0.2 % (0.0-10.0); %Lymphocytes 14.1 % (21.0-51.0); %Monocytes 3.4 % (0.0-10.0); %Neutrophils 81.5 % (42.0-75.0); Hemoglobin 14.1 g/dL (12.0-16.0); Mean Corpuscular HGB CONC 32.8 g/dL (32.0-36.0); Mean Corpuscular Hemoglobin 30.3 pg (27.0-31.0); Mean Corpuscular Volume 92.3 fL (78.0-98.0); Mean Platelet Volume 8.9 fL (7.4-10.4); Platelet Count 202 thou/uL (130-400); RBC Distribution Width 10.8 % (11.5-14.5); Red Blood Cell (RBC) Count 4.67 mill/uL (4.20-5.40); White Blood Cell (WBC) Count 11.8 thou/uL (4.8-10.8)
[2018-11-21] MEDS ORDERED: Prochlorperazine 10 MG/2 ML VIAL ONE (20:04)
[2018-11-21] MEDS ORDERED: Sodium Chloride 0.9% 1,000 ML ONE (20:04)
[2018-11-21 20:11] LABS: ALT (SGPT) 29 U/L (8-55); AST (SGOT) 23 U/L (5-34); Albumin 4.7 g/dL (3.5-5.0); Alkaline Phosphatase 91 U/L (40-150); Anion Gap 16 mmol/L (10-20); BUN (Urea Nitrogen) 13 mg/dL (9.8-20.1); Bilirubin, Total 0.8 mg/dL (0.2-1.2); CK (CPK) 39 U/L (29-168); Calc. Creatinine Clearance 0 mL/min (70-130); Calcium 9.4 mg/dL (7.8-10.44); Carbon Dioxide 27 mmol/L (22-29); Chloride 101 mmol/L (98-107); Estimated GFR-MDRD 72; Globulin 3.4 g/dL (2.4-3.5); Glucose 152 mg/dL (70-105); Lipase 32 U/L (8-78); Magnesium 2.3 mg/dL (1.6-2.6); Potassium 3.2 mmol/L (3.5-5.1); Protein, Total 8.1 g/dL (6.0-8.3); Sodium 141 mmol/L (136-145)
--- NOTE | 2018-11-21 20:37 | RAD ---
ABDOMEN ONE VIEW: 11/21/18 HISTORY: Nausea, vomiting. FINDINGS/IMPRESSION: There are postop changes of cholecystectomy. No free air or differential fluid levels are seen. The b owel gas pattern is unremarkable. Calcifications in the pelvis are likely phleboliths. There are dege nerative changes in the spine. POS: [facility]
[2018-11-21] MEDS ORDERED: NS 0.9% w/ 20 MEQ KCL 1,000 ML ONE (20:46)
[2018-11-21] MEDS ORDERED: cloNIDine 0.1mg/24 Hour PATCH ONE (20:47)
[2018-11-21] MEDS ORDERED: cloNIDine 0.1 MG TAB ONE (20:47)
== END 2018-11-21 23:24 | disposition home or self-care (01) ==
LOC: MADERS 19:17
DX: F11.23 Opioid dependence with withdrawal (principal); R11.2 Nausea with vomiting, unspecified; T40.2X5A Adverse effect of other opioids, initial encounter; I10 Essential (primary) hypertension; F32.9 Major depressive disorder, single episode, unspecified; Z79.899 Other long term (current) drug therapy
CPT/HCPCS: 36415; 74018; 80053; 82550; 83605; 83690; 83735; 85025; 96365; 96366; 96375; J0780; J3480; J7050

== ENCOUNTER 2019-07-17 12:52 | Emergency (ER) | payer SELFPAY ==
[~2019-07-17 12:52] MED LIST changes: -Iopamidol 370 76% 75 ML VIAL FS ONE
[2019-07-17 13:19] LABS: #Basophils 0.1 thou/uL (0.0-0.2); #Lymphocytes 1.2 thou/uL (1.20-3.40); #Monocytes 0.6 thou/uL (0.11-0.59); #Neutrophils 14.3 thou/uL (1.40-6.50); %Basophils 0.5 % (0.0-1.0); %Eosinophils 0.1 % (0.0-10.0); %Lymphocytes 7.2 % (21.0-51.0); %Monocytes 3.8 % (0.0-10.0); %Neutrophils 88.6 % (42.0-75.0); Hemoglobin 14.7 g/dL (12.0-16.0); Mean Corpuscular Hemoglobin 30.3 pg (27.0-31.0); Mean Corpuscular Volume 94.7 fL (78.0-98.0); Mean Platelet Volume 9.9 fL (7.4-10.4); Platelet Count 225 thou/uL (130-400); Red Blood Cell (RBC) Count 4.84 mill/uL (4.20-5.40); White Blood Cell (WBC) Count 16.1 thou/uL (4.8-10.8)
[2019-07-17] MEDS ORDERED: Promethazine HCl 25 MG/ML VIAL ONE (13:19)
[2019-07-17 13:35] LABS: ALT (SGPT) 23 U/L (8-55); AST (SGOT) 23 U/L (5-34); Albumin 5.2 g/dL (3.5-5.0); Alkaline Phosphatase 96 U/L (40-110); Anion Gap 20 mmol/L (10-20); BUN (Urea Nitrogen) 13 mg/dL (9.8-20.1); Bilirubin, Total 0.8 mg/dL (0.2-1.2); Calc. Creatinine Clearance 0 mL/min (70-130); Calcium 10.3 mg/dL (7.8-10.44); Carbon Dioxide 23 mmol/L (22-29); Chloride 104 mmol/L (98-107); Estimated GFR-MDRD 67; Globulin 3.6 g/dL (2.4-3.5); Glucose 165 mg/dL (70-105); Lipase 7 U/L (8-78); Potassium 3.8 mmol/L (3.5-5.1); Protein, Total 8.8 g/dL (6.0-8.3); Sodium 143 mmol/L (136-145)
== END 2019-07-17 14:27 | disposition home or self-care (01) ==
LOC: MADERS 12:52
DX: A08.4 Viral intestinal infection, unspecified (principal); R11.2 Nausea with vomiting, unspecified; I10 Essential (primary) hypertension; F32.9 Major depressive disorder, single episode, unspecified; Z79.899 Other long term (current) drug therapy
CPT/HCPCS: 80053; 83690; 85025; 93005; 94760; 96365; J2550; J7050

== ENCOUNTER 2020-07-31 07:30 | Emergency (ER) | payer OTHER, SELFPAY ==
[2020-07-31 21:51] LABS: SARS-CoV-2 PCR by NAA Not Detected (NotDetected)
== END 2020-07-31 08:30 | disposition home or self-care (01) ==
LOC: MADERS 07:30
DX: B34.9 Viral infection, unspecified (principal); F11.23 Opioid dependence with withdrawal; I10 Essential (primary) hypertension; Z20.822 Contact with and (suspected) exposure to COVID-19
CPT/HCPCS: 87635; 99284; U0003; U0005